=== PATIENT | female | born 1960 | race Caucasian/White ===

== ENCOUNTER 2018-10-31 10:40 | Inpatient (IN) ==
[2018-10-31] MEDS ORDERED: Sodium Chloride 0.9% 1,000 ML PRIMARY IV ONE (10:57)
[2018-10-31] MEDS ORDERED: IPRATROPIUM/ALBUTEROL SULFATE 3 ML NEB NEB ONE (10:58)
--- NOTE | 2018-10-31 10:59 | EKG ---
[address] [address] Measurements Intervals [place] Rate: 82 P: 66 [place]: 123 QRS: 200 QRSD: 86 T: 59 QT: 360 QTc: 398 Interpretive Statements SINUS RHYTHM WITH OCCASIONAL SUPRAVENTRICULAR PREMATURE COMPLEXES INDETERMINATE AXIS RIGHT VENTRICULAR CONDUCTION DELAY No previous ECG available for comparison Electronically Signed On 10-31-18 15:41:06 MDT by David Goldstein [id number]
[2018-10-31 11:04] LABS: BASOPHILS # (AUTO) 0.03 10*3/UL; BASOPHILS % (AUTO) 0.5 % (0-1); EOSINOPHILS # (AUTO) 0.08 10*3/UL; EOSINOPHILS % (AUTO) 1.5 % (0-8); Hematocrit [HCT] 63.7 % (37.0-47.0); MEAN CORPUSCULAR HEMOGLOBIN 33.2 PG (27-31); MEAN CORPUSCULAR HGB CONC 34.5 g/dL (33-37); MEAN CORPUSCULAR VOLUME 96.2 FL (81-99); MEAN PLATELET VOLUME 10.1 FL (7.4-12.2); MONOCYTES # (AUTO) 0.49 10*3/UL (0.3-0.8); MONOCYTES % (AUTO) 8.9 % (5-15); NEUTROPHILS # (AUTO) 3.71 10*3/UL; NEUTROPHILS % (AUTO) 67.3 % (50-80); RED BLOOD COUNT 6.62 10^6/uL (4.20-5.40)
[2018-10-31 11:06] LABS: PLATELET MORPHOLOGY COMMENT NORMAL MORPHOLOGY (NORM); RBC MORPHOLOGY COMMENT NORMAL MORPHOLOGY (NORM); WBC MORPHOLOGY COMMENT NORMAL MORPHOLOGY (NORM)
[2018-10-31 11:10] LABS: BLOOD UREA NITROGEN 15 mg/dL (7-22); SERUM ALBUMIN 4.4 g/dL (3.5-4.8)
[2018-10-31 11:46] LABS: VENOUS PH 7.4 (7.32-7.42)
--- NOTE | 2018-10-31 12:11 | DI ---
XR CXR 2VW PA/LAT 10/31/2018 10:59 AM [place] [facility] [place]; dyspnea Comparison: CT chest 09/16/2018. Rib x-ray 09/15/2011. Findings: PA and lateral views of the chest demonstrate hyperinflation without focal consolidation. A n indistinct subcentimeter nodular density projects over the right mid lateral lung. There is no pneu mothorax or pleural effusion. The cardiomediastinal silhouette is normal in size with atheromatous ca lcifications in the arch of the thoracic aorta. The main pulmonary artery is prominent. The osseous s tructures are not significantly changed. Impression: 1. There is no radiographic evidence of acute cardiopulmonary pathology. 2. Obstructive pulmonary physiology. 3. The main pulmonary artery is dilated, a finding associated with pulmonary artery hypertension.
--- NOTE | 2018-10-31 13:51 | PDOC ---
HPI - History of Present Illness History of Present Illness: Is very nice 57-year-old female who comes in the ER. Since shortness of breath and cough over the last few days. Past Medical History Medical History: COPD exacerbation tobacco use, hypothyroidism, hypertension, elevated hematocrit Tobacco Use: Current Every Day Smoker Do you dip or chew tobacco: No In the Past 12 Months, Have Used or Abuse Any of the Following Substance: None Medication / Allergies Home Medications: Home Medications Medication Instructions Recorded Confirmed Albuterol Sulfate [Ventolin Hfa] 2 puff INH Q4-6H PRN #1 inhaler 01/03/15 10/31/18 albuterol sulfate 2.5 mg/3 mL 2.5 mg INH Q4-6H PRN #180 ml 09/09/18 10/31/18 (0.083 %) solution for nebulization amlodipine 10 mg tablet 10 mg PO QDAY #30 tab 09/09/18 10/31/18 clonazepam 0.5 mg tablet 0.5 mg PO DAILY PRN #30 tab 09/09/18 10/31/18 fluticasone fur. 100 mcg-umeclid 1 inh INH QDAY #90 ea 09/09/18 10/31/18 62.5 mcg-vilant 25 mcg inhalat.powder hydrochlorothiazide 25 mg tablet 25 mg PO QDAY #30 tab 09/09/18 10/31/18 levothyroxine 125 mcg tablet 125 mcg PO DAILY #30 tab 09/09/18 10/31/18 lisinopril 40 mg tablet 40 mg PO BID #60 tab 09/09/18 10/31/18 O2 2 l INH .continuous #1 unit 10/14/18 10/31/18 Allergies/Adverse Reactions: Allergies Allergy/AdvReac Type Severity Reaction Status Date / Time No Known Drug Allergies Allergy Mild none Verified 10/31/18 10:46 Exam - Vitals Vital Signs: Vital Signs Temperature 97.7 F Temperature Source Temporal Artery Scan Pulse Rate [Pulse Oximeter 82 Right] Pulse Rate [Apical] 82 Pulse Rate 75 Respiratory Rate 16 Blood Pressure [Left Arm] 119/83 Pulse Ox 98 Oxygen Flow Rate 4LPM N/C Oxygen Delivery Method Nasal Cannula Height 5 ft 4 in Weight 164 lb - General General Appearance: No Acute Distress, Cooperative - Head Head Exam: Normal Inspection, Normocephalic, Atraumatic - Eye Eye Exam: POSITIVE: Normal Appearance, PERRL, EOMI, No Scleral Icterus - Neck Neck Exam: Normal Inspection, Full ROM, No Tenderness, No Lymphadenopathy, No Thyromegaly, JVP is not Raised - Respiratory Respiratory Exam: POSITIVE: Decreased Breath Sounds, Rales, Wheezes, Prolonged Expiratory Phase - Cardiovascular Cardiovascular Exam: POSITIVE: RRR, No Murmur, No Clicks, No Gallops, No Rubs, PMI Non-Displaced - GI/Abdominal GI/Abdominal Exam: POSITIVE: Normal Bowel Sounds, Non Tender, Non Distended, Soft, No Masses, No Hepatomegaly, No Splenomegaly, No Organomegaly - Extremities Extremities Exam: POSITIVE: No Clubbing Present, No Edema Present, No Cyanosis Present Results - Labs CBC and BMP: 10/31/18 10:35 10/31/18 10:35 Assessment and Plan - Patient Problems (1) Chronic obstructive lung disease Current Visit: No Status: None Comment: Check CT scan picture patient doesn't have a PE with a higher hematocrit and hypoxia. Possible pneumonia on physical exam start ceftriaxone 2 g in the interim I's and 500 mg inhalers steroids admit the patient all these medications will be given on the floor nothing is been given in the ER Qualifiers: (2) Elevated hematocrit Current Visit: Yes Status: Acute Comment: We'll hydrate the patient repeat labs if still elevated will phlebotomize and reject 2 mutation for polycythemia vera this will be from smoking and the dehydration as well and understands and agrees Code(s): R71.8 - Other abnormality of red blood cells (3) Hypothyroidism Current Visit: No Status: None Comment: Continue replacement Qualifiers: (4) Tobacco use disorder, continuous Current Visit: No Status: None Comment: Yuniel patch and Ativan for anxiety (5) Anxiety Current Visit: Yes Status: Acute Code(s): F41.9 - Anxiety disorder, unspecified
[2018-10-31] MEDS ORDERED: CLONAZEPAM 0.5 MG PO PRN (15:12)
[2018-10-31] MEDS ORDERED: LIDOCAINE W/ SODIUM BICARB 0.5 ML SYR SUBD PRN (15:12)
[2018-10-31] MEDS ORDERED: ALBUTEROL SULFATE 2.5 MG/3 ML NEB PRN (15:12)
[2018-10-31] MEDS ORDERED: cefTRIAXone Inj 2 GM in Sodium Chloride 0.9% 100 ML IV SCH (15:12)
[2018-10-31] MEDS: Sodium Chloride 0.9% 1,000 ML PRIMARY IV SCH (17:08)
[2018-10-31] MEDS: methylPREDNISolone 125 MG/2 ML VIAL IVP SCH ×2 (17:08→22:15)
[2018-10-31] MEDS: HEPARIN 5000 UNIT/1 ML SUBCUT SCH ×2 (17:10→22:16)
--- NOTE | 2018-10-31 17:31 | DI ---
CT CTA Chest Non-Coronary WWO 10/31/2018 3:12 PM History: [facility] [place] ^hypoxia Comparison: Chest x-ray from earlier the same day. CT chest 09/16/2018, 10/27/2012. Procedure: CT angiography of the pulmonary arteries was performed after the administration of 61 mL o f Ultravist 370 intravenous contrast. Findings: There is normal opacification of the pulmonary arteries with no evidence of filling defect. Evaluation of the lungs demonstrates new patchy groundglass opacities in the right and left upper lo bes. There is no dense consolidation. No pneumothorax or pleural effusion is present. There is scarri ng with associated pulmonary nodule again noted in the right middle lobe, unchanged from the most rem ote examination. No new pulmonary nodules are noted. There is mild diffuse bronchial wall thickening without endobronchial lesion. There is no mediastinal or hilar lymphadenopathy. The aorta and branch vessels demonstrate normal cou rse and caliber. The main pulmonary artery is dilated at 3.3 cm. Heart size is within normal limits w ith no pericardial effusion. The thyroid is unchanged. The visualized upper abdominal structures are unremarkable. The osseous structures are not significantly changed. There is no evidence of acute or healing rib fr actures. Impression: 1. No main or segmental pulmonary embolism. 2. Bilateral upper lobe groundglass opacities. This is a nonspecific finding with a broad differentia l that includes atelectasis, atypical infection, hypersensitivity pneumonitis, and pulmonary edema in the acute setting. Clinical correlation is recommended with followup 6 weeks following completion of therapy in order to to ensure resolution. 3. There is diffuse bronchial wall thickening without endobronchial lesion. This is a non-specific fi nding that is most commonly seen in the setting of acute or chronic bronchitis, as well as reactive a irways disease. 4. The main pulmonary artery is dilated, a finding associated with pulmonary artery hypertension.
[2018-10-31] MEDS: ClonazePAM Tab 1 MG TABLET PO PRN (17:40)
[2018-10-31] MEDS: IPRATROPIUM/ALBUTEROL SULFATE 3 ML NEB NEB SCH (19:03)
[2018-10-31] MEDS: FLUTICASONE/SALMETEROL 100/50 UD INHALER INH SCH (19:06)
[2018-10-31] MEDS ORDERED: Zolpidem Tab 5 MG TAB PO ONE (19:19)
[2018-11-01] MEDS: Sodium Chloride 0.9% 1,000 ML PRIMARY IV SCH ×3 (02:09→19:10)
[2018-11-01] MEDS: LEVOTHYROXINE 125 MCG TABLET PO SCH ×2 (04:01→05:18)
[2018-11-01] MEDS: methylPREDNISolone 125 MG/2 ML VIAL IVP SCH ×4 (04:01→20:25)
[2018-11-01 04:50] LABS: BASOPHILS # (AUTO) 0.03 10*3/UL; EOSINOPHILS # (AUTO) 0 10*3/UL; EOSINOPHILS % (AUTO) 0 % (0-8); Hematocrit [HCT] 62.8 % (37.0-47.0); Hemoglobin [HGB] 21.1 g/dL (12.0-16.0); LYMPHOCYTES # (AUTO) 0.59 10*3/uL; MEAN CORPUSCULAR HEMOGLOBIN 32.5 PG (27-31); MEAN CORPUSCULAR HGB CONC 33.6 g/dL (33-37); MEAN CORPUSCULAR VOLUME 96.8 FL (81-99); MEAN PLATELET VOLUME 10.1 FL (7.4-12.2); MONOCYTES # (AUTO) 0.03 10*3/UL (0.3-0.8); NEUTROPHILS # (AUTO) 2.49 10*3/UL; NEUTROPHILS % (AUTO) 79.2 % (50-80); RED BLOOD COUNT 6.49 10^6/uL (4.20-5.40)
[2018-11-01 04:52] LABS: BLOOD UREA NITROGEN 12 mg/dL (7-22); SERUM ALBUMIN 3.9 g/dL (3.5-4.8)
[2018-11-01 05:05] LABS: PLATELET MORPHOLOGY COMMENT NORMAL MORPHOLOGY (NORM); RBC MORPHOLOGY COMMENT NORMAL MORPHOLOGY (NORM); WBC MORPHOLOGY COMMENT NORMAL MORPHOLOGY (NORM)
--- NOTE | 2018-11-01 06:03 | PDOC ---
General Adult HPI - General Chief Complaint: Chest Pain Stated Complaint: HYPOXIA, CHEST PAIN Date Seen by Provider: 10/31/18 Time Seen by Provider: 10:35 Source: POSITIVE: Patient, Spouse, EMS, Old records Exam Limitations: POSITIVE: No limitations Nurse's Notes Reviewed & Considered: Yes EMS Report Reviewed & Considered: Verbal - History of Present Illness Initial Comment: The patient is a 57-year-old female. Patient initially presented to the clinic complaining of increased shortness of breath for the last 2 or 3 days. Patient has a long-standing history of tobacco abuse, and states that she is trying to quit. At the clinic the patient's oxygen saturation was reportedly 77%. She received a nebulizer treatment at the clinic; on 4 L of oxygen the patient's saturation was 92%; was 87% on 2 L of oxygen by nasal cannula. Patient occasionally uses oxygen at home, but not while at work. She's not had any fevers or chills. She's had some increased cough. Review old records shows that she had a CT scan of the chest done on 09/16/2018 without contrast which showed centrilobular emphysema was some chronic interstitial fibrosis and some pulmonary nodules which were unchanged since 2013. Patient's states that he's noticed that patient has had some increased erythema to her face and to the palms of her hands, especially with activity or emotional upset. History of hypertension for which she takes lisinopril, amlodipine and hydrochlorothiazide. She has a nicotine patch. History of hypothyroidism for which she takes levothyroxine. She gives herself albuterol by nebulization up to 3 times a day. Have you received a tetanus shot in the past 10 years?: No Body Location Affected: REPORTS: Chest (Dyspnea) Timing: REPORTS: Gradual, Getting Worse Duration: <1 week Severity: Moderate Quality: REPORTS: "Pain" (Patient states she has had some intermittent chest discomfort for the past 3 days.) Context: REPORTS: None Modifying Factors: improves with: Exercise (Dyspnea with exertion) Similar Symptoms Previously: Yes Recent Care Received: REPORTS: Recently Seen, Treated by MD (As above) Any Prior Injuries Related to Current Complaint?: No - Patient Home Medications Home Medications: Home Medications Albuterol Sulfate [Ventolin Hfa] 2 puff INH Q4-6H PRN #1 inhaler 07/20/15 albuterol sulfate 2.5 mg/3 mL (0.083 %) solution for nebulization 2.5 mg INH Q4- 6H PRN #180 ml 09/09/18 amlodipine 10 mg tablet 10 mg PO QDAY #30 tab 09/09/18 clonazepam 0.5 mg tablet 0.5 mg PO DAILY PRN #30 tab 09/09/18 fluticasone fur. 100 mcg-umeclid 62.5 mcg-vilant 25 mcg inhalat.powder 1 inh INH QDAY #90 ea 09/09/18 hydrochlorothiazide 25 mg tablet 25 mg PO QDAY #30 tab 09/09/18 levothyroxine 125 mcg tablet 125 mcg PO DAILY #30 tab 09/09/18 lisinopril 40 mg tablet 40 mg PO BID #60 tab 09/09/18 O2 2 l INH .continuous #1 unit 10/14/18 - Patient Allergies Allergies/Adverse Reactions: Allergies Allergy/AdvReac Type Severity Reaction Status Date / Time No Known Drug Allergies Allergy Mild none Verified 10/31/18 15:29 Past Medical History - heen HEENT History: Dentures/Partials Cardiovascular History: Hypertension, Hyperlipidemia Respiratory History: Snoring Gastrointestinal History: GERD Genitourinary History: Denies History Endocrine History: Hypothyroidism Musculoskeletal History: Arthritis, Back Pain, Back Injury, Joint Pain Prosthesis or Implant: No Neurological History: Denies History Blood Disorders: Denies History Psychiatric History: Anxiety Disorders History of Sexually Transmitted Diseases: No Female Reproductive History: Denies History Obstetrical History: Denies History Cancer History: Denies History In Past Year Been Physically Harmed or Verbally Threatened: No History of MDRO: No History of Other Communicable Diseases: No Tobacco Use: Current Every Day Smoker Alcohol Use: Occasionally In the Past 12 Months, Have Used or Abuse Any Substance: None Previous Surgical History: No Anesthesia Reactions: No Significant Family History: No pertinent family hx Past Medical History Reviewed: Reviewed - No Changes ROS - Limitations ROS Limitations: No Limitations Constitution: REPORTS: Denies Symptoms Cardiovascular: REPORTS: Chest Pain (Intermittent chest discomfort for the past 3 days of vague) Respiratory: REPORTS: Cough Non Productive, Shortness Of Breath Neurological: REPORTS: Denies Neuro Symptoms Gastrointestinal: REPORTS: Denies GI Symptoms Endocrine: REPORTS: Denies Symptoms Musculoskeletal: REPORTS: Denies MS Symptoms Genitourinary: REPORTS: Denies Symptoms Eyes: REPORTS: Denies Symptoms ENT: REPORTS: Denies Symptoms Skin: REPORTS: Denies Skin Symptoms Lympathic: REPORTS: Denies Lympathic Symptoms Immunologic: POSITIVE: Denies Symptoms Psychiatric: POSITIVE: Denies Psych Symptoms General Adult Exam - General Appearance General Appearance: POSITIVE: Alert, Cooperative, No Acute Distress, No Evidence of Trauma - HEENT HEENT: POSITIVE: Head Inspection Nml, Eyes Inspection Nml, Ears Inspection Nml, Nose Inspection Nml, Oral/Dental Inspect. Nml, Pharynx Inspect. Nml, PERRL, EOMI - Pupils Pupil Size: 4 mm: Bilateral (PERRLA) - Neck Neck: POSITIVE: Normal Inspection, Thyroid Normal - Respiratory Respiratory: POSITIVE: Chest Non-Tender, Rhonchi. NEGATIVE: No Respiratory Distress (Oxygen saturation 87% on 2 L and 92% on 4 L by nasal cannula), Breath Sounds Normal (Breath sounds distant; some coarse rhonchi) - Cardiovascular Cardiovascular: POSITIVE: Regular Rate & Rhythm, No Murmur, No Gallop, PMI Normal Peripheral Pulses: Radial (R): 2+, Radial (L): 2+ - Abdomen Abdomen: Soft: (All Quadrants), Normal Bowel Sounds: (All Quadrants), Denies Tenderness: (All Quadrants), No Splenomegaly: (All Quadrants), No Hepatomegaly: (All Quadrants), No Guarding: (All Quadrants), No Rebound: (All Quadrants), No Palpable Pulse: (All Quadrants), No Palpabale Mass: (All Quadrants), No Distention: (All Quadrants), No Rigidity: (All Quadrants) - Back Back: POSITIVE: Normal Inspection - Skin Skin: POSITIVE: Normal Color, Warm, Dry, No Rash - Extremities Extremity: Non-Tender: (All Extremities), Normal ROM: (All Extremities), Normal Inspection: (All Extremities) - Neurological / Psychological Neurological: 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 Lab Results Reviewed by Me: Yes (marked polycythemia) Lab Results:: Laboratory Results 10/31/18 10/31/18 10/31/18 10:35 10:35 10:35 WBC 5.51 RBC 6.62 H Hgb 22.0 H Hct 63.7 H MCV 96.2 MCH 33.2 H MCHC 34.5 RDW Std Deviation 48.3 RDW Coeff of Lamonte 13.4 Plt Count 170 MPV 10.1 Immature Gran % (Auto) 0 Neut % (Auto) 67.3 Lymph % (Auto) 21.8 [place]ink % (Auto) 8.9 Eos % (Auto) 1.5 Baso % (Auto) 0.5 Immature Gran # (Auto) 0 Neut # (Auto) 3.71 Lymph # (Auto) 1.20 [place]ink # (Auto) 0.49 Eos # (Auto) 0.08 Baso # (Auto) 0.03 WBC Morphology Comment Normal morphology Plt Morphology Comment Normal morphology RBC Morph Comment Normal morphology D-Dimer 158 VBG pH VBG pCO2 VBG HCO3 VBG Base Excess Sodium 136 Potassium 4.5 Chloride 94 L Carbon Dioxide 28 Anion Gap 14 BUN 15 Creatinine 0.6 Estimated GFR > 60 BUN/Creatinine Ratio 25.00 H Glucose 119 H Calculated Osmolality 283.0 Calcium 9.4 Total Bilirubin 0.4 AST 48 H ALT 19 Alkaline Phosphatase 115 CK-MB (CK-2) Troponin I NT-Pro-B Natriuret Pep 111 Total Protein 7.5 Albumin 4.4 Globulin 3.2 Albumin/Globulin Ratio 1.30 10/31/18 10/31/18 10:35 11:25 WBC RBC Hgb Hct MCV MCH MCHC RDW Std Deviation RDW Coeff of Lamonte Plt Count MPV Immature Gran % (Auto) Neut % (Auto) Lymph % (Auto) [place] % (Auto) Eos % (Auto) Baso % (Auto) Immature Gran # (Auto) Neut # (Auto) Lymph # (Auto) [place]ink # (Auto) Eos # (Auto) Baso # (Auto) WBC Morphology Comment Plt Morphology Comment RBC Morph Comment D-Dimer VBG pH 7.4 VBG pCO2 46 VBG HCO3 28 H VBG Base Excess 4 H Sodium Potassium Chloride Carbon Dioxide Anion Gap BUN Creatinine Estimated GFR BUN/Creatinine Ratio Glucose Calculated Osmolality Calcium Total Bilirubin AST ALT Alkaline Phosphatase CK-MB (CK-2) 4.66 Troponin I < 0.012 NT-Pro-B Natriuret Pep Total Protein Albumin Globulin Albumin/Globulin Ratio CBC and BMP: 11/01/18 04:00 11/01/18 04:00 EKG Interpreted/Reviewed By Me:: Yes EKG Interpretation:: POSITIVE: Normal Sinus Rhythm, Normal Rate, Normal Intervals, Normal [place], Normal QRS, Normal ST/T - Patient's Progress Pain Medication Addressed: POSITIVE: Not Applicable School/Work Release Addressed: POSITIVE: Not Applicable Re-Examine Time: 13:10 Re-Examine Comment: Patient noted to have a hemoglobin of 22 and a hematocrit of 63.7. Review old records shows that the patient has not had any CBCs done at our facility since 03/15/2014. At that time her hemoglobin was 16 and her hien tocrit was 48.0. Case discussed with Dr. Jones, hematology, who advised phlebotomy for hematocrits over 55. Patient given another DuoNeb nebulizer treatment in the emergency room with some improvement. Case discussed with hospitalist, Dr. Youssef, who will admit the patient for further evaluation and treatment and for phlebotomy. Status: POSITIVE: Improved, Re-Examined Antibiotics Given: No - Consult Consult (If Yes, Name of Consulting MD & Time Called): Yes (Dr. Jones, hematology. Dr. Youssef, hospitalist 1300) Consulting MD will see pt:: POSITIVE: [facility] [place] Counseled: POSITIVE: Patient, Family, RE: Lab Results, RE: Radiology Results, RE: DX, RE: Need for F/U Patient Care Time - Estimated PCT Patient Care Time (In Minutes): 60 Vital Signs - VS Reviewed Vital Signs Reviewed: Yes Discharge Clinical Impression: Atypical chest pain, Hypoxia, COPD (chronic obstructive pulmonary disease), Polycythemia secondary to hypoxia Discharge Disposition: Admit to Inpatient Condition: Stable Date Decision to Admit to Inpatient: 10/31/18 Time Decision to Admit to Inpatient: 12:45
[2018-11-01] MEDS: IPRATROPIUM/ALBUTEROL SULFATE 3 ML NEB NEB SCH ×4 (06:30→18:56)
[2018-11-01] MEDS: FLUTICASONE/SALMETEROL 100/50 UD INHALER INH SCH (06:32)
[2018-11-01] MEDS: NICOTINE 21 MG /DAY PATCH TRANSDERM SCH (08:26)
[2018-11-01] MEDS: LISINOPRIL 20 MG TABLET PO SCH ×2 (08:26→20:25)
[2018-11-01] MEDS: HEPARIN 5000 UNIT/1 ML SUBCUT SCH ×3 (08:27→23:48)
[2018-11-01] MEDS: ClonazePAM Tab 1 MG TABLET PO PRN (09:12)
--- NOTE | 2018-11-01 10:33 | PDOC(PROG) ---
Interval History: Patient states she is breathing a little better overall still feels tight and short short of breath but improved since yesterday. Denies chest pain nausea or vomiting Objective : Data - Labs CBC and BMP: 11/01/18 04:00 11/01/18 04:00 Objective : Exam - General General Appearance: Cooperative - Respiratory Respiratory Exam: Decreased Breath Sounds, Wheezes - Cardiovascular Cardiovascular Exam: RRR, No Murmur, No Clicks, No Gallops, No Rubs, PMI Non- Displaced - GI/Abdominal GI/Abdominal Exam: Normal Bowel Sounds, Non Tender, Non Distended, Soft, No Masses, No Hepatomegaly, No Splenomegaly, No Organomegaly - Extremities Extremities Exam: No Clubbing Present, No Edema Present, No Cyanosis Present Assessment and Plan - Patient Problems (1) Chronic obstructive lung disease Current Visit: Yes Status: Acute Comment: Continue antibiotics and inhalers Qualifiers: (2) Elevated hematocrit Current Visit: Yes Status: Acute Comment: We have rehydrated the patient overnight she did not drop much we would do a therapeutic phlebotomy today to get the crit down Code(s): R71.8 - Other abnormality of red blood cells (3) Hypothyroidism Current Visit: No Status: None Comment: Continue replacement Qualifiers: (4) Tobacco use disorder, continuous Current Visit: No Status: None Comment: Nicotine patch (5) Anxiety Current Visit: Yes Status: Acute Comment: Clonazepam Code(s): F41.9 - Anxiety disorder, unspecified
[2018-11-01] MEDS: [UNRECOGNIZED DRUG - OTHER] TRANSDERM SCH (12:25)
[2018-11-01] MEDS: cefTRIAXone Inj 2 GM in Sodium Chloride 0.9% 100 ML IV SCH (14:50)
[2018-11-01] MEDS ORDERED: Zolpidem Tab 5 MG TAB PO ONE (19:07)
[2018-11-01] MEDS ORDERED: Zolpidem Tab 5 MG TAB PO PRN (20:04)
[2018-11-02] MEDS: methylPREDNISolone 125 MG/2 ML VIAL IVP SCH ×2 (03:18→09:26)
[2018-11-02] MEDS: FLUTICASONE/SALMETEROL 100/50 UD INHALER INH SCH ×2 (03:49→06:52)
[2018-11-02] MEDS: IPRATROPIUM/ALBUTEROL SULFATE 3 ML NEB NEB SCH ×5 (06:51→19:19)
[2018-11-02] MEDS ORDERED: LEVOTHYROXINE 100 MCG TABLET PO SCH (07:30)
[2018-11-02] MEDS ORDERED: LEVOTHYROXINE 25 MCG TABLET PO ONE (07:30)
[2018-11-02] MEDS: NICOTINE 21 MG /DAY PATCH TRANSDERM SCH (09:24)
[2018-11-02] MEDS: LISINOPRIL 20 MG TABLET PO SCH ×2 (09:25→20:25)
[2018-11-02] MEDS: [UNRECOGNIZED DRUG - OTHER] TRANSDERM SCH (09:25)
[2018-11-02] MEDS: LEVOTHYROXINE 125 MCG TABLET PO SCH (09:26)
[2018-11-02] MEDS: HEPARIN 5000 UNIT/1 ML SUBCUT SCH ×3 (09:26→23:40)
[2018-11-02 09:31] LABS: BASOPHILS # (AUTO) 0.02 10*3/UL; BASOPHILS % (AUTO) 0.1 % (0-1); EOSINOPHILS # (AUTO) 0 10*3/UL; EOSINOPHILS % (AUTO) 0 % (0-8); LYMPHOCYTES # (AUTO) 0.59 10*3/uL; MEAN CORPUSCULAR HEMOGLOBIN 32.9 PG (27-31); MEAN CORPUSCULAR HGB CONC 33.9 g/dL (33-37); MEAN PLATELET VOLUME 9.7 FL (7.4-12.2); MONOCYTES # (AUTO) 0.34 10*3/UL (0.3-0.8); MONOCYTES % (AUTO) 2.1 % (5-15); RED BLOOD COUNT 6.08 10^6/uL (4.20-5.40)
[2018-11-02 09:50] LABS: PLATELET MORPHOLOGY COMMENT SEE COMMENTS (NORM); RBC MORPHOLOGY COMMENT SEE COMMENTS (NORM); WBC MORPHOLOGY COMMENT SEE COMMENTS (NORM)
[2018-11-02] MEDS: ClonazePAM Tab 1 MG TABLET PO PRN (10:19)
--- NOTE | 2018-11-02 10:27 | PDOC(PROG) ---
Interval History: Patient feels a little better from a breathing standpoint. No chest pain nausea vomiting she start an break up her secretions and coughing. Objective : Data - Labs CBC and BMP: 11/02/18 09:28 11/01/18 04:00 Objective : Exam - General General Appearance: Cooperative - Respiratory Respiratory Exam: Wheezes - Cardiovascular Cardiovascular Exam: RRR, No Murmur, No Clicks, No Gallops, No Rubs, PMI Non- Displaced - GI/Abdominal GI/Abdominal Exam: Normal Bowel Sounds, Non Tender, Non Distended, Soft, No Masses, No Hepatomegaly, No Splenomegaly, No Organomegaly - Extremities Extremities Exam: No Clubbing Present, No Edema Present, No Cyanosis Present Assessment and Plan - Patient Problems (1) Chronic obstructive lung disease Current Visit: Yes Status: Acute Comment: Continue antibiotics and current medical therapy still some expiratory wheezes I'll probably need a few more days continue ceftriaxone and Zithromax will stop IV Solu-Medrol and switch over to by mouth prednisone 40 mg daily Qualifiers: (2) Elevated hematocrit Current Visit: Yes Status: Acute Comment: Patient had 1 phlebotomy 450 out we will attempt another one today and might need another one tomorrow to get her crit below 45 ultimately needs a workup with echo and hematology Code(s): R71.8 - Other abnormality of red blood cells (3) Hypothyroidism Current Visit: No Status: None Comment: Continue replacement Qualifiers: (4) Tobacco use disorder, continuous Current Visit: No Status: None Comment: On nicotine patch counseled on not smoking (5) Anxiety Current Visit: Yes Status: Acute Comment: On the clonazepam Code(s): F41.9 - Anxiety disorder, unspecified
[2018-11-02] MEDS: predniSONE Tab 20 MG TAB PO SCH (12:11)
[2018-11-02] MEDS: AZITHROMYCIN 250 MG TABLET PO SCH (14:06)
[2018-11-02] MEDS: cefTRIAXone Inj 2 GM in Sodium Chloride 0.9% 100 ML IV SCH (16:15)
[2018-11-03] MEDS: FLUTICASONE/SALMETEROL 100/50 UD INHALER INH SCH ×2 (04:47→07:17)
[2018-11-03 04:49] LABS: BASOPHILS # (AUTO) 0.05 10*3/UL; BASOPHILS % (AUTO) 0.3 % (0-1); EOSINOPHILS # (AUTO) 0 10*3/UL; EOSINOPHILS % (AUTO) 0 % (0-8); Hematocrit [HCT] 55.3 % (37.0-47.0); Hemoglobin [HGB] 18.6 g/dL (12.0-16.0); LYMPHOCYTES # (AUTO) 1.14 10*3/uL; MEAN CORPUSCULAR HEMOGLOBIN 33.3 PG (27-31); MEAN CORPUSCULAR HGB CONC 33.6 g/dL (33-37); MEAN CORPUSCULAR VOLUME 98.9 FL (81-99); MEAN PLATELET VOLUME 9.8 FL (7.4-12.2); MONOCYTES # (AUTO) 0.72 10*3/UL (0.3-0.8); MONOCYTES % (AUTO) 4.7 % (5-15); NEUTROPHILS # (AUTO) 13.32 10*3/UL; NEUTROPHILS % (AUTO) 87.2 % (50-80); RED BLOOD COUNT 5.59 10^6/uL (4.20-5.40)
[2018-11-03 05:00] LABS: BLOOD UREA NITROGEN 18 mg/dL (7-22); SERUM ALBUMIN 3.4 g/dL (3.5-4.8)
[2018-11-03 05:07] LABS: PLATELET MORPHOLOGY COMMENT NORMAL MORPHOLOGY (NORM); RBC MORPHOLOGY COMMENT NORMAL MORPHOLOGY (NORM); WBC MORPHOLOGY COMMENT NORMAL MORPHOLOGY (NORM)
[2018-11-03] MEDS ORDERED: LEVOTHYROXINE 100 MCG TABLET PO SCH (05:30)
[2018-11-03] MEDS ORDERED: LEVOTHYROXINE 25 MCG TABLET PO SCH (05:30)
[2018-11-03] MEDS: HEPARIN 5000 UNIT/1 ML SUBCUT SCH (06:51)
[2018-11-03] MEDS: IPRATROPIUM/ALBUTEROL SULFATE 3 ML NEB NEB SCH ×2 (07:18→11:03)
[2018-11-03] MEDS: ClonazePAM Tab 1 MG TABLET PO PRN (08:09)
[2018-11-03] MEDS: predniSONE Tab 20 MG TAB PO SCH (08:09)
[2018-11-03] MEDS: NICOTINE 21 MG /DAY PATCH TRANSDERM SCH (08:09)
[2018-11-03] MEDS: [UNRECOGNIZED DRUG - OTHER] TRANSDERM SCH (08:10)
[2018-11-03] MEDS: LISINOPRIL 20 MG TABLET PO SCH (09:01)
[2018-11-03 11:00] VITALS: BP 131/85; TEMP 97.7
[2018-11-03 11:06] VITALS: RESP 20
--- NOTE | 2018-11-03 12:51 | DCSUMMARY ---
Hospitalization Summary Admit Date: 10/31/2018 Discharge Date: 11/03/18 Primary Diagnosis:: COPD exacerbation Secondary Diagnosis:: Severe pulmonary hypertension Hospital Course: This very pleasant 58-year-old female who presented with shortness of breath. She was admitted, treated for COPD exacerbation, and CT scan was negative for pulmonary emboli. She had signs of pulmonary hypertension, was also found to be quite polycythemic and required phlebotomy during the hospital stay. She stated she felt much better after phlebotomy. Oxygen helped as well. She states she feels significantly better today, has no chest pain and does not feel short of breath. She is not sure she can return to work because of her chronic shortness of breath issues in her lung disease. I think she needs additional outpatient workup including an echocardiogram, and perhaps pulmonary evaluation. In addition, I think she will require phlebotomy on a every 3 week basis until her hematocrit is below 55% on a consistent basis. I wrote some outpatient orders for that. I also recommended a full dose aspirin for this. I went through the risks factors for aspirin including ulcers and bleeding issues. I think the patient would benefit from finishing up Zithromax and prednisone for COPD exacerbation. Assessment and Plan: 1. As per discharge assessments noted 2. Disposition: patient is discharged home 3. Condition on discharge, stable and improved. At this point I would say long- term prognosis is unclear as I suspect the patient probably has severe pulmonary hypertension 4. Diet: regular diet 5. Activities: At this time, do not return to work. 24 7 oxygen 6. Follow-Up: 1. Yuliet Benson in 1 week 2. I've written orders for patient to have CBC about every 3 weeks and if hematocrit greater than 55, 1 unit phlebotomy. 7. Medications at the Time of Discharge: Home Medications Medication Instructions Recorded Confirmed albuterol sulfate 2.5 mg/3 mL 2.5 mg INH Q4-6H PRN #180 ml 09/09/18 10/31/18 (0.083 %) solution for nebulization amlodipine 10 mg tablet 10 mg PO QDAY #30 tab 09/09/18 10/31/18 clonazepam 0.5 mg tablet 0.5 mg PO DAILY PRN #30 tab 09/09/18 10/31/18 fluticasone fur. 100 mcg-umeclid 1 inh INH QDAY #90 ea 09/09/18 10/31/18 62.5 mcg-vilant 25 mcg inhalat.powder hydrochlorothiazide 25 mg tablet 25 mg PO QDAY #30 tab 09/09/18 10/31/18 levothyroxine 125 mcg tablet 125 mcg PO DAILY #30 tab 09/09/18 10/31/18 lisinopril 40 mg tablet 40 mg PO BID #60 tab 09/09/18 10/31/18 Aspirin 325 mg PO DAILY #90 tab 11/03/18 Azithromycin [Zithromax] 500 mg PO Q24H #3 tab 11/03/18 Calcium Carbonate/Vitamin D3 1 tab PO DAILY 11/03/18 11/03/18 [Calcium 500 + Vit D Caplet] Gluc Chan/Chondro Chan A/Vit C/Mn 2 tab PO QAM 11/03/18 11/03/18 [Glucosamine Chondroitin Tab] Multivitamin [Daily Value] 1 tab PO DAILY 11/03/18 11/03/18 Nicotine 21mg Patch [Nicoderm CQ 1 patch TRANSDERMAL DAILY patch 11/03/18 21mg Patch] predniSONE Tab [Deltasone Tab] 40 mg PO DAILY #10 tab 11/03/18 8. Time, care, counseling and coordination of care for this discharge is greater than 30 minutes. Exam - Vitals Vital Signs: Vital Signs Temperature 97.7 F Temperature Source Temporal Artery Scan Pulse Rate [Pulse Oximeter 105 Right] Pulse Rate [Apical] 90 Pulse Rate [left 1st finger] 105 Pulse Rate 101 Respiratory Rate 20 Blood Pressure [Right Arm] 131/85 Blood Pressure [Left Arm] 138/68 Blood Pressure 145/81 Pulse Ox [left 1st finger] 90 Pulse Ox 90 Oxygen Flow Rate [left 1st 3 finger] Oxygen Flow Rate 3 Oxygen Delivery Method [left Nasal Cannula 1st finger] Oxygen Delivery Method Nasal Cannula Height 5 ft 4 in Weight 154 lb 8 oz - General General Appearance: No Acute Distress, Cooperative - Eye Eye Exam: POSITIVE: No Scleral Icterus - ENT ENT Exam: POSITIVE: Mucous Membranes Moist - Neck Neck Exam: JVP is not Raised - Respiratory Respiratory Exam: POSITIVE: Breathing Non Labored, Coarse Breath Sounds - Cardiovascular Cardiovascular Exam: POSITIVE: RRR, No Murmur, No Clicks, No Gallops, No Rubs, No JVD - GI/Abdominal GI/Abdominal Exam: POSITIVE: Normal Bowel Sounds, Non Tender, Non Distended, Soft - Extremities Extremities Exam: POSITIVE: No Edema Present, No Cyanosis Present, Clubbing Present - Neurological Neurological Exam: POSITIVE: Alert, Oriented x 3, No Facial Droop, Speech Intact / Clear, Moves All Extremities Equally - Psychiatric Psychiatric Exam: POSITIVE: Normal Affect, Normal Mood - Integumentary Additional Integumentary Exam Details: Has palmar erythema Data Peritnent Studies: 10/31/18 10/31/18 10/31/18 10:35 11:25 16:50 WBC Hgb Hct Plt Count Neut % (Auto) VBG pH 7.4 VBG pCO2 46 VBG HCO3 28 H VBG Base Excess 4 H Sodium Potassium Chloride Carbon Dioxide Anion Gap BUN Creatinine BUN/Creatinine Ratio Glucose Calculated Osmolality Calcium Total Bilirubin AST ALT Alkaline Phosphatase Troponin I < 0.012 < 0.012 Total Protein Albumin Globulin Albumin/Globulin Ratio 10/31/18 11/01/18 11/02/18 22:30 04:00 09:28 WBC 16.19 H Hgb 20.0 H Hct 59.0 H Plt Count 231 Neut % (Auto) 94.0 H VBG pH VBG pCO2 VBG HCO3 VBG Base Excess Sodium 142 D Potassium 4.3 Chloride 99 Carbon Dioxide 29 Anion Gap 14 BUN 12 Creatinine 0.5 BUN/Creatinine Ratio 24.00 H Glucose 150 H Calculated Osmolality 296.0 H Calcium 9.1 Total Bilirubin 0.2 L AST 22 ALT 25 Alkaline Phosphatase 89 Troponin I < 0.012 Total Protein 6.8 Albumin 3.9 Globulin 2.9 Albumin/Globulin Ratio 1.30 Procedures: [address] [facility] [place] [address] PH: DD: [phone] FAX: [phone] ~DIAGNOSTIC IMAGING REPORT~ Patient: Noris Brown : 1960 Sex: F Age: 57 Exam Name: CT CTA Chest Non-Coronary [facility] Exam Date: 10/31/18 Report # : [id number] CPT Code: 10436 EMR/MR #: [id number] Ordering: MERT TEE Admiting: MERT TEE MD. Primary: Dariana Benson MS, [employer] Attending: MERT TEE MD. Signed CT CTA Chest Non-Coronary [facility] 10/31/2018 3:12 PM History: [facility] ^hypoxia Comparison: Chest x-ray from earlier the same day. CT chest 09/16/2018, 10/27/2012. Procedure: CT angiography of the pulmonary arteries was performed after the administration of 61 mL of Ultravist 370 intravenous contrast. Findings: There is normal opacification of the pulmonary arteries with no evidence of filling defect. Evaluation of the lungs demonstrates new patchy groundglass opacities in the right and left upper lobes. There is no dense consolidation. No pneumothorax or pleural effusion is present. There is scarring with associated pulmonary nodule again noted in the right middle lobe, unchanged from the most remote examination. No new pulmonary nodules are noted. There is mild diffuse bronchial wall thickening without endobronchial lesion. There is no mediastinal or hilar lymphadenopathy. The aorta and branch vessels demonstrate normal course and caliber. The main pulmonary artery is dilated at 3.3 cm. Heart size is within normal limits with no pericardial effusion. The thyroid is unchanged. The visualized upper abdominal structures are unremarkable. The osseous structures are not significantly changed. There is no evidence of acute or healing rib fractures. Impression: 1. No main or segmental pulmonary embolism. 2. Bilateral upper lobe groundglass opacities. This is a nonspecific finding with a broad differential that includes atelectasis, atypical infection, hypersensitivity pneumonitis, and pulmonary edema in the acute setting. Clinical correlation is recommended with followup 6 weeks following completion of therapy in order to to ensure resolution. 3. There is diffuse bronchial wall thickening without endobronchial lesion. This is a non-specific finding that is most commonly seen in the setting of acute or chronic bronchitis, as well as reactive airways disease. 4. The main pulmonary artery is dilated, a finding associated with pulmonary artery hypertension. Dictated By: 10/31/18 1718 TIKA LARSON MD. Signed By: 10/31/18 1731 TIKA LARSON MD. Patient Problems - Patient Problem List (1) Chronic obstructive lung disease Current Visit: Yes Status: Acute Qualifiers: COPD type: COPD with acute exacerbation Qualified Code(s): J44.1 - Chronic obstructive pulmonary disease with (acute) exacerbation Category: Medical (2) Pulmonary hypertension Current Visit: Yes Status: Acute Code(s): I27.20 - Pulmonary hypertension, unspecified Category: Medical (3) Polycythemia secondary to hypoxia Current Visit: Yes Status: Acute Code(s): D75.1 - Secondary polycythemia Category: Medical (4) Anxiety Current Visit: Yes Status: Chronic Category: Medical (5) Hyperlipidemia Current Visit: Yes Status: None Qualifiers: Hyperlipidemia type: mixed hyperlipidemia Qualified Code(s): E78.2 - Mixed hyperlipidemia Category: Medical (6) Hypothyroidism Current Visit: Yes Status: Chronic Comment: with multinodular gland, s/p FNA 2009 Qualifiers: Hypothyroidism type: unspecified Qualified Code(s): E03.9 - Hypothyroidism, unspecified Category: Medical (7) Tobacco use disorder, continuous Current Visit: Yes Status: Acute Category: Medical
[2018-11-03 13:30] VITALS: O2SAT 92
[2018-11-03] MEDS: AZITHROMYCIN 250 MG TABLET PO SCH (13:47)
[2018-11-05 15:20] LABS: JAK2 RESULT see interpretation
== END 2018-11-03 14:47 | disposition home or self-care (01) | DRG 192 ==
LOC: ER 10:40 → MED/SURG 15:03
PROVIDERS: ADMIT Internal Medicine; ATTEND Internal Medicine